=== PATIENT | female | born 1940 | race Caucasian/White ===

== ENCOUNTER 2016-07-29 09:49 | Emergency (ER) | payer SELFPAY ==
[~2016-07-29] VITALS: Ht 167.6 cm; Wt 90.0 kg
[2016-07-29 09:52] VITALS: BP 147/87; PULSE 104; RESP 14; TEMP 97.9; O2SAT 96
== END 2016-07-29 11:20 | disposition left against medical advice (07) ==
LOC: NED 09:49
DX: K62.5 Hemorrhage of anus and rectum (principal)
CPT/HCPCS: 99281